=== PATIENT | male | born 1955 | race Two or more races ===

== ENCOUNTER 2021-10-06 17:37 | Inpatient (IN) | payer MEDICARE, MEDICAID ==
[~2021-10-06] VITALS: Ht 170.2 cm; Wt 105.7 kg
[2021-10-06] MEDS ORDERED: LEVETIRACETAM 500MG PREMIX 100 ML IV ONE (19:00)
[2021-10-06 19:09] LABS: BASOPHILS % 0.3 % (0.0-2.0); HEMATOCRIT. 35.2 % (42.0-52.0); HEMOGLOBIN. 11.8 g/dL (14.0-18.0); LYMPHOCYTES % 8.2 % (20.0-50.0); MEAN CORPUSCULAR HEMOGLOBIN 29.9 pg (28.0-32.0); MEAN CORPUSCULAR VOLUME 89.2 fL (80.0-94.0); MEAN PLATELET VOLUME 9.5 fl (7.4-10.4); MONOCYTES % 12.3 % (2.0-8.0); NEUTROPHILS % 79.2 % (40.0-76.0); PLATELET 111 x1000/uL (130-400); RED BLOOD CELL COUNT 3.95 mill/uL (4.7-6.1); RED CELL DISTRIBUTION WIDTH 22.3 % (11.6-14.6)
[2021-10-06 19:10] LABS: CHLORIDE 92 mEq/L (98-107)
[2021-10-06 19:15] LABS: ETHANOL BLOOD < 10 mg/dL
[2021-10-06] MEDS ORDERED: LACTULOSE 20G/30ML UDC PO ONE (19:45)
[2021-10-06 21:14] LABS: PLATELET ESTIMATE DECREASED
[2021-10-06 23:25] VITALS: BP 155/91
[2021-10-07] VITALS: BP 145/73
[2021-10-07] MEDS ORDERED: METF-414 PO (00:07)
[2021-10-07] MEDS ORDERED: CALC-3 MT (00:08)
[2021-10-07] MEDS ORDERED: ATOR40TA70 MT (00:10)
[2021-10-07] MEDS ORDERED: TAMS-11 PO (00:11)
[2021-10-07] MEDS ORDERED: MAGNESIUM/ALUMINUM HYDROXIDE/SIMETHICONE 30ML UDC PO PRN (01:00)
[2021-10-07] MEDS ORDERED: GUAIFENESIN 200MG/10ML SUGAR FREE UDC PO PRN (01:00)
[2021-10-07] MEDS ORDERED: HYDROCODONE/ACETAMINOPHEN 5/325MG TABLET PO PRN (01:00)
[2021-10-07] MEDS ORDERED: DOCUSATE SODIUM 100MG CAPSULE PO PRN (01:00)
[2021-10-07] MEDS ORDERED: CLONIDINE 0.1MG TABLET PO PRN (01:00)
[2021-10-07] MEDS ORDERED: IPRATROPIUM/ALBUTEROL 0.5-3(2.5)MG/3ML NEB NEB PRN (01:00)
[2021-10-07] MEDS ORDERED: ACETAMINOPHEN 325MG TABLET PO PRN (01:00)
[2021-10-07] MEDS ORDERED: ONDANSETRON HCL 4MG/2ML INJ IV PRN (01:00)
[2021-10-07] MEDS: LORAZEPAM 2MG/ML CPJ IV PRN ×2 (02:15→23:43)
[2021-10-07] MEDS ORDERED: MVI, ADULT NO.1 10 ML, FOLIC ACID 1 MG, THIAMINE HCL 100 MG in SODIUM CHLORIDE 0.9% 1,0... IV SCH (04:00)
[2021-10-07] MEDS: LACTULOSE 20G/30ML UDC PO SCH ×3 (05:35→22:06)
[2021-10-07] MEDS: CHLORDIAZEPOXIDE 25MG CAPSULE PO SCH ×3 (05:35→22:01)
[2021-10-07 06:15] LABS: BASOPHILS % 0.3 % (0.0-2.0); EOSINOPHILS % 0.2 % (0.0-5.0); HEMATOCRIT. 33.9 % (42.0-52.0); HEMOGLOBIN. 11.4 g/dL (14.0-18.0); LYMPHOCYTES % 14.7 % (20.0-50.0); MEAN CORPUSCULAR HEMOGLOBIN 29.8 pg (28.0-32.0); MEAN CORPUSCULAR VOLUME 88.8 fL (80.0-94.0); MEAN PLATELET VOLUME 8.7 fl (7.4-10.4); MONOCYTES % 8.5 % (2.0-8.0); NEUTROPHILS % 76.3 % (40.0-76.0); PLATELET 87 x1000/uL (130-400); RED BLOOD CELL COUNT 3.81 mill/uL (4.7-6.1)
[2021-10-07 06:26] LABS: CHLORIDE 96 mEq/L (98-107)
[2021-10-07 06:34] LABS: LDL CHOLESTEROL 99 mg/dL (5-100)
[2021-10-07 06:35] LABS: CREATINE KINASE 733 IU/L (39-308); CREATINE KINASE MB FRACTION 4.3 ng/mL (0.5-3.6); HDL CHOLESTEROL 9 mg/dL (40-59)
[2021-10-07 07:25] LABS: HEPATITIS B SURFACE ANTIGEN NEGATIVE
[2021-10-07 12:00] VITALS: BP 144/83
[2021-10-07 12:29] LABS: *AMPHETAMINES SCREEN URINE NEGATIVE (NEGATIVE); *BARBITURATES SCREEN URINE NEGATIVE (NEGATIVE); *BENZODIAZEPINES SCREEN URINE NEGATIVE (NEGATIVE); *COCAINE SCREEN URINE NEGATIVE (NEGATIVE)
[2021-10-07 12:30] LABS: CANNABINOID URINE SCREEN NEGATIVE (NEGATIVE); METHADONE URINE SCREEN NEGATIVE (NEGATIVE); OPIATES URINE SCREEN NEGATIVE (NEGATIVE); PHENCYCLIDINE URINE SCREEN NEGATIVE (NEGATIVE)
[2021-10-07 16:00] VITALS: BP 131/88
[2021-10-07] MEDS ORDERED: LACTULOSE 20G/30ML UDC PO PRN (16:30)
[2021-10-07 17:15] LABS: CREATINE KINASE 510 IU/L (39-308)
[2021-10-07 17:16] LABS: CREATINE KINASE MB FRACTION 2.6 ng/mL (0.5-3.6)
[2021-10-07 20:00] VITALS: BP 151/92
[2021-10-07] MEDS: LACTATED RINGERS 1,000 ML IV SCH (22:00)
[2021-10-08] VITALS: BP 145/89
[2021-10-08] MEDS: LACTATED RINGERS 1,000 ML IV SCH ×2 (00:33→05:32)
[2021-10-08 04:00] VITALS: BP 141/86
[2021-10-08] MEDS: CHLORDIAZEPOXIDE 25MG CAPSULE PO SCH ×3 (05:31→21:09)
[2021-10-08] MEDS: LACTULOSE 20G/30ML UDC PO SCH ×3 (05:31→21:09)
[2021-10-08] MEDS: LORAZEPAM 2MG/ML CPJ IV PRN ×2 (05:43→20:01)
[2021-10-08 07:57] LABS: INR 2.2; PROTHROMBIN TIME 21.9 sec (9.6-11.0)
[2021-10-08 08:00] VITALS: BP 133/80
[2021-10-08] MEDS: FOLIC ACID 1MG TABLET PO SCH (09:07)
[2021-10-08] MEDS: THIAMINE HCL 100MG TABLET PO SCH (09:08)
[2021-10-08] MEDS: MULTIVITAMINS,THER W-MINERALS TABLET PO SCH (09:08)
[2021-10-08] MEDS: PANTOPRAZOLE SODIUM 40 MG/VIAL IV SCH (09:15)
[2021-10-08 12:00] VITALS: BP 111/74
[2021-10-08] MEDS ORDERED: NALOXONE HCL 0.4MG/ML VIAL IV PRN (13:15)
[2021-10-08 16:00] VITALS: BP 132/79
[2021-10-08 20:00] VITALS: BP 154/90
[2021-10-09] VITALS: BP 167/84
[2021-10-09] MEDS: LACTATED RINGERS 1,000 ML IV SCH ×2 (00:55→12:46)
[2021-10-09 04:00] VITALS: BP 145/79
[2021-10-09] MEDS: LACTULOSE 20G/30ML UDC PO SCH ×3 (05:46→21:35)
[2021-10-09] MEDS: CHLORDIAZEPOXIDE 25MG CAPSULE PO SCH ×3 (05:46→21:35)
[2021-10-09 07:44] LABS: BASOPHILS % 0.6 % (0.0-2.0); EOSINOPHILS % 0.8 % (0.0-5.0); HEMATOCRIT. 31.9 % (42.0-52.0); HEMOGLOBIN. 10.8 g/dL (14.0-18.0); LYMPHOCYTES % 17.2 % (20.0-50.0); MEAN CORPUSCULAR HEMOGLOBIN 30.6 pg (28.0-32.0); MEAN CORPUSCULAR VOLUME 90.3 fL (80.0-94.0); MONOCYTES % 14.6 % (2.0-8.0); NEUTROPHILS % 66.8 % (40.0-76.0); PLATELET 93 x1000/uL (130-400); RED BLOOD CELL COUNT 3.53 mill/uL (4.7-6.1); RED CELL DISTRIBUTION WIDTH 22.5 % (11.6-14.6)
[2021-10-09 07:57] LABS: CHLORIDE 102 mEq/L (98-107)
[2021-10-09 08:00] VITALS: BP 150/91
[2021-10-09] MEDS: MULTIVITAMINS,THER W-MINERALS TABLET PO SCH (09:44)
[2021-10-09] MEDS: THIAMINE HCL 100MG TABLET PO SCH (09:44)
[2021-10-09] MEDS: FOLIC ACID 1MG TABLET PO SCH (09:44)
[2021-10-09] MEDS: PANTOPRAZOLE SODIUM 40 MG/VIAL IV SCH (09:55)
[2021-10-09] MEDS ORDERED: POTASSIUM CHLORIDE 20MEQ/PACKET PO SCH (10:00)
[2021-10-09] MEDS ORDERED: KCL 20MEQ/100ML PREMIX 100 ML IV SCH (11:30)
[2021-10-09 12:00] VITALS: BP 129/80
[2021-10-09] MEDS: SODIUM CHLORIDE 0.9% 1,000 ML IV SCH (15:07)
[2021-10-09 16:00] VITALS: BP 121/72
[2021-10-09] MEDS: KCL 20MEQ/100ML PREMIX 100 ML IV SCH ×2 (17:08→17:35)
[2021-10-09] MEDS: RIFAXIMIN 550 MG TABLET PO SCH (17:08)
[2021-10-09 20:00] VITALS: BP 126/76
[2021-10-10] VITALS: BP 133/82
[2021-10-10] MEDS: RIFAXIMIN 550 MG TABLET PO SCH ×3 (00:36→22:08)
[2021-10-10 04:00] VITALS: BP 133/80
[2021-10-10] MEDS: SODIUM CHLORIDE 0.9% 1,000 ML IV SCH ×2 (04:45→16:19)
[2021-10-10] MEDS: CHLORDIAZEPOXIDE 25MG CAPSULE PO SCH ×3 (05:14→22:08)
[2021-10-10] MEDS: LACTULOSE 20G/30ML UDC PO SCH ×3 (05:15→22:09)
[2021-10-10 06:26] LABS: HEMATOCRIT. 33.1 % (42.0-52.0); HEMOGLOBIN. 11.2 g/dL (14.0-18.0); MEAN CORPUSCULAR HEMOGLOBIN 30.9 pg (28.0-32.0); MEAN CORPUSCULAR VOLUME 91.4 fL (80.0-94.0); MEAN PLATELET VOLUME 7.9 fl (7.4-10.4); PLATELET 112 x1000/uL (130-400); RED BLOOD CELL COUNT 3.62 mill/uL (4.7-6.1); RED CELL DISTRIBUTION WIDTH 23.1 % (11.6-14.6)
[2021-10-10 06:35] LABS: CHLORIDE 106 mEq/L (98-107)
[2021-10-10 06:54] LABS: PHOSPHORUS 1.6 mg/dL (2.5-4.9)
[2021-10-10 08:00] VITALS: BP 140/86
[2021-10-10] MEDS: FOLIC ACID 1MG TABLET PO SCH (09:27)
[2021-10-10] MEDS: THIAMINE HCL 100MG TABLET PO SCH (09:27)
[2021-10-10] MEDS: PANTOPRAZOLE SODIUM 40 MG/VIAL IV SCH (09:27)
[2021-10-10] MEDS: MULTIVITAMINS,THER W-MINERALS TABLET PO SCH (09:27)
[2021-10-10 12:00] VITALS: BP 125/63
[2021-10-10 16:00] VITALS: BP 144/86
[2021-10-10 17:49] LABS: PLATELET ESTIMATE DECREASED
[2021-10-10] MEDS ORDERED: POTASSIUM PHOS,M-BASIC-D-BASIC 10 MMOL in DEXT 5% WATER 246.6667 ML IV NR (18:00)
[2021-10-10] MEDS ORDERED: MAGNESIUM 2 G PREMIX 50 ML IV NR (18:00)
[2021-10-10 20:00] VITALS: BP 139/87
[2021-10-11] VITALS: BP 152/84
[2021-10-11] MEDS ORDERED: SODIUM PHOS,M-BASIC-D-BASIC 10 MM in DEXT 5% WATER 246.6667 ML IV NR (01:00)
[2021-10-11 04:00] VITALS: BP 149/85
[2021-10-11] MEDS: SODIUM CHLORIDE 0.9% 1,000 ML IV SCH ×2 (05:03→18:18)
[2021-10-11] MEDS: CHLORDIAZEPOXIDE 25MG CAPSULE PO SCH ×2 (05:26→13:00)
[2021-10-11] MEDS: LACTULOSE 20G/30ML UDC PO SCH ×3 (05:26→21:07)
[2021-10-11] MEDS: BLOOD SUGAR DIAGNOSTIC STRIP TEST SCH ×4 (05:47→21:07)
[2021-10-11] MEDS: INSULIN LISPRO 100 UNITS/ML SUBCUT SCH ×4 (06:25→21:00)
[2021-10-11 06:45] LABS: HEMATOCRIT. 33.1 % (42.0-52.0); HEMOGLOBIN. 11.2 g/dL (14.0-18.0); MEAN CORPUSCULAR HEMOGLOBIN 31.1 pg (28.0-32.0); MEAN CORPUSCULAR VOLUME 91.5 fL (80.0-94.0); MEAN PLATELET VOLUME 7.9 fl (7.4-10.4); PLATELET 118 x1000/uL (130-400); RED BLOOD CELL COUNT 3.62 mill/uL (4.7-6.1); RED CELL DISTRIBUTION WIDTH 23.1 % (11.6-14.6)
[2021-10-11 06:50] LABS: CHLORIDE 106 mEq/L (98-107)
[2021-10-11 08:00] VITALS: BP 133/82
[2021-10-11] MEDS: RIFAXIMIN 550 MG TABLET PO SCH ×2 (09:08→21:07)
[2021-10-11] MEDS: THIAMINE HCL 100MG TABLET PO SCH (09:08)
[2021-10-11] MEDS: PANTOPRAZOLE SODIUM 40 MG/VIAL IV SCH (09:08)
[2021-10-11] MEDS: FOLIC ACID 1MG TABLET PO SCH (09:08)
[2021-10-11] MEDS: MULTIVITAMINS,THER W-MINERALS TABLET PO SCH (09:08)
[2021-10-11 10:25] LABS: PLATELET ESTIMATE DECREASED
[2021-10-11 12:00] VITALS: BP 146/85
[2021-10-11] MEDS: LORAZEPAM 2MG/ML CPJ IV PRN (15:29)
[2021-10-11 16:00] VITALS: BP 126/78
[2021-10-11] MEDS ORDERED: CHLORDIAZEPOXIDE 25MG CAPSULE PO SCH (17:00)
[2021-10-11] MEDS ORDERED: LACTULOSE 300 ML in WATER FOR IRRIGATION,STERILE 700 ML IR NR (18:00)
[2021-10-11 20:00] VITALS: BP 140/76
[2021-10-12] VITALS: BP 145/87
[2021-10-12 04:00] VITALS: BP 134/66
[2021-10-12] MEDS: SODIUM CHLORIDE 0.9% 1,000 ML IV SCH ×2 (05:07→18:11)
[2021-10-12] MEDS: LACTULOSE 20G/30ML UDC PO SCH ×3 (05:07→22:20)
[2021-10-12] MEDS: BLOOD SUGAR DIAGNOSTIC STRIP TEST SCH ×4 (05:49→21:42)
[2021-10-12] MEDS: INSULIN LISPRO 100 UNITS/ML SUBCUT SCH ×4 (05:49→21:00)
[2021-10-12 06:23] LABS: CHLORIDE 109 mEq/L (98-107)
[2021-10-12 07:04] LABS: HEMATOCRIT. 35.5 % (42.0-52.0); MEAN CORPUSCULAR HEMOGLOBIN 31.2 pg (28.0-32.0); MEAN CORPUSCULAR VOLUME 92.7 fL (80.0-94.0); MEAN PLATELET VOLUME 7.9 fl (7.4-10.4); PLATELET 139 x1000/uL (130-400); RED BLOOD CELL COUNT 3.83 mill/uL (4.7-6.1); RED CELL DISTRIBUTION WIDTH 24.1 % (11.6-14.6)
[2021-10-12 08:00] VITALS: BP 130/73
[2021-10-12] MEDS: THIAMINE HCL 100MG TABLET PO SCH (09:39)
[2021-10-12] MEDS: FOLIC ACID 1MG TABLET PO SCH (09:39)
[2021-10-12] MEDS: MULTIVITAMINS,THER W-MINERALS TABLET PO SCH (09:39)
[2021-10-12] MEDS: RIFAXIMIN 550 MG TABLET PO SCH ×2 (09:39→21:42)
[2021-10-12] MEDS: CHLORDIAZEPOXIDE 25MG CAPSULE PO SCH ×2 (09:39→17:53)
[2021-10-12] MEDS: PANTOPRAZOLE SODIUM 40 MG/VIAL IV SCH (09:40)
[2021-10-12 12:00] VITALS: BP 129/80
[2021-10-12 13:34] LABS: PLATELET ESTIMATE NORMAL
[2021-10-12 16:00] VITALS: BP 132/78
[2021-10-12 20:00] VITALS: BP 137/79
[2021-10-12] MEDS: CEFEPIME 2,000 MG in DEXT 5% WATER 100 ML IV SCH (21:23)
[2021-10-13] VITALS: BP 149/76
[2021-10-13 04:00] VITALS: BP 132/77
[2021-10-13 06:05] LABS: CLARITY URINE CLOUDY (CLEAR); COLOR URINE DARK YELLOW (YELLOW); KETONES URINE NEGATIVE (NEGATIVE); LEUKOCYTE ESTERASE URINE 1+ (NEGATIVE); NITRITE URINE POSITIVE (NEGATIVE); OCCULT BLOOD URINE NEGATIVE (NEGATIVE); PROTEIN URINE 1+ (NEGATIVE); SPECIFIC GRAVITY URINE 1.025 (1.005-1.030); UROBILINOGEN URINE 0.2 E.U./dL (0.2-1.0)
[2021-10-13] MEDS: LACTULOSE 20G/30ML UDC PO SCH ×3 (06:08→22:08)
[2021-10-13] MEDS: BLOOD SUGAR DIAGNOSTIC STRIP TEST SCH ×4 (06:09→21:00)
[2021-10-13] MEDS: INSULIN LISPRO 100 UNITS/ML SUBCUT SCH ×4 (06:09→21:00)
[2021-10-13] MEDS: SODIUM CHLORIDE 0.9% 1,000 ML IV SCH ×2 (06:43→19:55)
[2021-10-13 08:00] VITALS: BP 144/91
[2021-10-13] MEDS: MULTIVITAMINS,THER W-MINERALS TABLET PO SCH (09:52)
[2021-10-13] MEDS: FOLIC ACID 1MG TABLET PO SCH (09:52)
[2021-10-13] MEDS: RIFAXIMIN 550 MG TABLET PO SCH ×2 (09:52→22:07)
[2021-10-13] MEDS: THIAMINE HCL 100MG TABLET PO SCH (09:52)
[2021-10-13] MEDS: CHLORDIAZEPOXIDE 25MG CAPSULE PO SCH ×2 (09:52→16:50)
[2021-10-13] MEDS: PANTOPRAZOLE SODIUM 40 MG/VIAL IV SCH (09:53)
[2021-10-13] MEDS: CEFEPIME 2,000 MG in DEXT 5% WATER 100 ML IV SCH ×2 (09:54→19:55)
[2021-10-13 12:00] VITALS: BP 149/86
[2021-10-13 12:27] LABS: BASOPHILS % 0.7 % (0.0-2.0); EOSINOPHILS % 0.5 % (0.0-5.0); HEMATOCRIT. 37.4 % (42.0-52.0); HEMOGLOBIN. 12.3 g/dL (14.0-18.0); LYMPHOCYTES % 10.2 % (20.0-50.0); MEAN CORPUSCULAR HEMOGLOBIN 30.7 pg (28.0-32.0); MEAN CORPUSCULAR VOLUME 93.3 fL (80.0-94.0); MEAN PLATELET VOLUME 7.8 fl (7.4-10.4); MONOCYTES % 10.7 % (2.0-8.0); NEUTROPHILS % 77.9 % (40.0-76.0); PLATELET 155 x1000/uL (130-400); RED BLOOD CELL COUNT 4.01 mill/uL (4.7-6.1); RED CELL DISTRIBUTION WIDTH 24.8 % (11.6-14.6)
[2021-10-13 12:36] LABS: CHLORIDE 113 mEq/L (98-107)
[2021-10-13 16:00] VITALS: BP 136/72
[2021-10-13] MEDS: SPIRONOLACTONE 50MG TABLET PO SCH ×2 (17:01→17:03)
[2021-10-13] MEDS: FUROSEMIDE 40MG TABLET PO SCH (17:03)
[2021-10-13] MEDS ORDERED: PHYTONADIONE 10MG/ML AMP SUBCUT NR (18:00)
[2021-10-13 20:00] VITALS: BP 148/79
[2021-10-13 20:37] LABS: INR 2.2; PROTHROMBIN TIME 22.5 sec (9.6-11.0)
[2021-10-14] VITALS: BP 139/76
[2021-10-14 04:00] VITALS: BP 121/60
[2021-10-14] MEDS: BLOOD SUGAR DIAGNOSTIC STRIP TEST SCH ×4 (06:00→21:05)
[2021-10-14] MEDS: FUROSEMIDE 40MG TABLET PO SCH ×2 (06:00→17:06)
[2021-10-14] MEDS: INSULIN LISPRO 100 UNITS/ML SUBCUT SCH ×4 (06:00→21:00)
[2021-10-14] MEDS: LACTULOSE 20G/30ML UDC PO SCH ×3 (06:00→21:10)
[2021-10-14 06:51] LABS: BASOPHILS % 1.8 % (0.0-2.0); EOSINOPHILS % 0.4 % (0.0-5.0); HEMATOCRIT. 34.9 % (42.0-52.0); HEMOGLOBIN. 11.6 g/dL (14.0-18.0); LYMPHOCYTES % 10.6 % (20.0-50.0); MEAN CORPUSCULAR HEMOGLOBIN 31.4 pg (28.0-32.0); MEAN CORPUSCULAR VOLUME 94.2 fL (80.0-94.0); MEAN PLATELET VOLUME 8.1 fl (7.4-10.4); MONOCYTES % 11.8 % (2.0-8.0); NEUTROPHILS % 75.4 % (40.0-76.0); PLATELET 146 x1000/uL (130-400); RED CELL DISTRIBUTION WIDTH 24.3 % (11.6-14.6)
[2021-10-14] MEDS: SODIUM CHLORIDE 0.9% 1,000 ML IV SCH ×2 (06:53→21:06)
[2021-10-14] MEDS: CEFEPIME 2,000 MG in DEXT 5% WATER 100 ML IV SCH ×2 (07:00→19:34)
[2021-10-14 07:16] LABS: CHLORIDE 116 mEq/L (98-107)
[2021-10-14 08:00] VITALS: BP 111/71
[2021-10-14] MEDS: MULTIVITAMINS,THER W-MINERALS TABLET PO SCH (08:26)
[2021-10-14] MEDS: FOLIC ACID 1MG TABLET PO SCH (08:26)
[2021-10-14] MEDS: RIFAXIMIN 550 MG TABLET PO SCH (08:26)
[2021-10-14] MEDS: THIAMINE HCL 100MG TABLET PO SCH (08:26)
[2021-10-14] MEDS: PANTOPRAZOLE SODIUM 40 MG/VIAL IV SCH (08:26)
[2021-10-14 12:00] VITALS: BP 142/85
[2021-10-14 16:00] VITALS: BP 135/72
[2021-10-14] MEDS: SPIRONOLACTONE 50MG TABLET PO SCH (17:07)
[2021-10-14 20:00] VITALS: BP 129/66
[2021-10-15] VITALS: BP 119/63
[2021-10-15 04:00] VITALS: BP 130/76
[2021-10-15] MEDS: INSULIN LISPRO 100 UNITS/ML SUBCUT SCH ×4 (06:16→21:30)
[2021-10-15] MEDS: LACTULOSE 20G/30ML UDC PO SCH ×3 (06:16→21:29)
[2021-10-15] MEDS: BLOOD SUGAR DIAGNOSTIC STRIP TEST SCH ×4 (06:16→21:14)
[2021-10-15] MEDS: FUROSEMIDE 40MG TABLET PO SCH ×2 (06:16→17:55)
[2021-10-15 07:24] LABS: CHLORIDE 116 mEq/L (98-107)
[2021-10-15 08:00] VITALS: BP 127/73
[2021-10-15] MEDS: SODIUM CHLORIDE 0.9% 1,000 ML IV SCH ×2 (09:11→21:31)
[2021-10-15] MEDS: FOLIC ACID 1MG TABLET PO SCH (09:11)
[2021-10-15] MEDS: CEFEPIME 2,000 MG in DEXT 5% WATER 100 ML IV SCH ×2 (09:11→19:43)
[2021-10-15] MEDS: THIAMINE HCL 100MG TABLET PO SCH (09:11)
[2021-10-15] MEDS: MULTIVITAMINS,THER W-MINERALS TABLET PO SCH (09:11)
[2021-10-15] MEDS: PANTOPRAZOLE SODIUM 40 MG/VIAL IV SCH (09:11)
[2021-10-15] MEDS: SPIRONOLACTONE 50MG TABLET PO SCH ×2 (09:32→17:55)
[2021-10-15 12:00] VITALS: BP 128/73
[2021-10-15 16:00] VITALS: BP 148/84
[2021-10-15] MEDS ORDERED: POTASSIUM CHLORIDE INJ 40 MEQ in DEXT 5% WATER 250 ML IV ONE (19:30)
[2021-10-15 20:00] VITALS: BP 145/81
[2021-10-15] MEDS: KCL 20MEQ/100ML PREMIX 100 ML IV SCH ×2 (21:31→23:42)
[2021-10-16] VITALS: BP 148/80
[2021-10-16] MEDS: INSULIN LISPRO 100 UNITS/ML SUBCUT SCH ×5 (03:14→21:00)
[2021-10-16 04:00] VITALS: BP 139/72
[2021-10-16 05:28] LABS: CHLORIDE 116 mEq/L (98-107)
[2021-10-16 06:14] LABS: BASOPHILS % 0.4 % (0.0-2.0); EOSINOPHILS % 0.4 % (0.0-5.0); HEMATOCRIT. 36.9 % (42.0-52.0); HEMOGLOBIN. 12.3 g/dL (14.0-18.0); LYMPHOCYTES % 7.8 % (20.0-50.0); MEAN CORPUSCULAR HEMOGLOBIN 31.6 pg (28.0-32.0); MEAN CORPUSCULAR VOLUME 94.5 fL (80.0-94.0); MEAN PLATELET VOLUME 8.1 fl (7.4-10.4); MONOCYTES % 9.6 % (2.0-8.0); NEUTROPHILS % 81.8 % (40.0-76.0); PLATELET 139 x1000/uL (130-400); RED CELL DISTRIBUTION WIDTH 23.4 % (11.6-14.6)
[2021-10-16] MEDS: FUROSEMIDE 40MG TABLET PO SCH ×2 (06:35→18:39)
[2021-10-16] MEDS: BLOOD SUGAR DIAGNOSTIC STRIP TEST SCH ×4 (06:35→21:03)
[2021-10-16] MEDS: LACTULOSE 20G/30ML UDC PO SCH ×3 (06:35→22:48)
[2021-10-16 08:00] VITALS: BP 146/68
[2021-10-16] MEDS: CEFEPIME 2,000 MG in DEXT 5% WATER 100 ML IV SCH ×2 (10:02→21:04)
[2021-10-16] MEDS: THIAMINE HCL 100MG TABLET PO SCH (10:03)
[2021-10-16] MEDS: MULTIVITAMINS,THER W-MINERALS TABLET PO SCH (10:03)
[2021-10-16] MEDS: SPIRONOLACTONE 50MG TABLET PO SCH ×2 (10:03→18:39)
[2021-10-16] MEDS: PANTOPRAZOLE SODIUM 40 MG/VIAL IV SCH (10:03)
[2021-10-16] MEDS: SODIUM CHLORIDE 0.9% 1,000 ML IV SCH ×2 (10:03→22:48)
[2021-10-16] MEDS: FOLIC ACID 1MG TABLET PO SCH (10:03)
[2021-10-16 12:00] VITALS: BP 138/74
[2021-10-16 16:00] VITALS: BP 135/74
[2021-10-16 20:00] VITALS: BP 124/63
[2021-10-16] MEDS: AMPICILLIN 1,000 MG in SODIUM CHLORIDE 0.9% 50 ML IV SCH (22:48)
[2021-10-17] VITALS: BP 127/66
[2021-10-17 04:00] VITALS: BP 113/62
[2021-10-17] MEDS: AMPICILLIN 1,000 MG in SODIUM CHLORIDE 0.9% 50 ML IV SCH ×4 (04:12→22:01)
[2021-10-17] MEDS: LACTULOSE 20G/30ML UDC PO SCH ×3 (06:15→22:01)
[2021-10-17] MEDS: FUROSEMIDE 40MG TABLET PO SCH ×2 (06:15→17:34)
[2021-10-17] MEDS: INSULIN LISPRO 100 UNITS/ML SUBCUT SCH ×4 (06:16→21:00)
[2021-10-17] MEDS: BLOOD SUGAR DIAGNOSTIC STRIP TEST SCH ×4 (06:16→21:59)
[2021-10-17 07:28] LABS: BASOPHILS % 0.7 % (0.0-2.0); EOSINOPHILS % 0.8 % (0.0-5.0); HEMATOCRIT. 36.1 % (42.0-52.0); MEAN CORPUSCULAR HEMOGLOBIN 31.1 pg (28.0-32.0); MEAN CORPUSCULAR VOLUME 93.6 fL (80.0-94.0); MEAN PLATELET VOLUME 8.4 fl (7.4-10.4); MONOCYTES % 8.9 % (2.0-8.0); NEUTROPHILS % 81.6 % (40.0-76.0); PLATELET 123 x1000/uL (130-400); RED BLOOD CELL COUNT 3.86 mill/uL (4.7-6.1); RED CELL DISTRIBUTION WIDTH 22.2 % (11.6-14.6)
[2021-10-17 07:37] LABS: CHLORIDE 112 mEq/L (98-107); INR 2.2; PROTHROMBIN TIME 22.4 sec (9.6-11.0)
[2021-10-17 08:00] VITALS: BP 140/76
[2021-10-17] MEDS: SPIRONOLACTONE 50MG TABLET PO SCH ×2 (10:21→17:34)
[2021-10-17] MEDS: MULTIVITAMINS,THER W-MINERALS TABLET PO SCH (10:21)
[2021-10-17] MEDS: FOLIC ACID 1MG TABLET PO SCH (10:21)
[2021-10-17] MEDS: PANTOPRAZOLE SODIUM 40 MG/VIAL IV SCH (10:21)
[2021-10-17] MEDS: THIAMINE HCL 100MG TABLET PO SCH (10:21)
[2021-10-17] MEDS: SODIUM CHLORIDE 0.9% 1,000 ML IV SCH ×2 (10:22→23:00)
[2021-10-17 12:00] VITALS: BP 133/82
[2021-10-17] MEDS ORDERED: POTASSIUM CHLORIDE 20MEQ TABLET SR PO NR (12:15)
[2021-10-17 16:00] VITALS: BP 132/71
[2021-10-17 20:00] VITALS: BP 122/64
[2021-10-18] VITALS: BP 112/49
[2021-10-18] MEDS: AMPICILLIN 1,000 MG in SODIUM CHLORIDE 0.9% 50 ML IV SCH ×4 (03:07→22:00)
[2021-10-18 04:00] VITALS: BP 131/59
[2021-10-18] MEDS: FUROSEMIDE 40MG TABLET PO SCH (06:06)
[2021-10-18] MEDS: LACTULOSE 20G/30ML UDC PO SCH ×3 (06:06→22:49)
[2021-10-18] MEDS: BLOOD SUGAR DIAGNOSTIC STRIP TEST SCH ×4 (06:16→21:00)
[2021-10-18] MEDS: INSULIN LISPRO 100 UNITS/ML SUBCUT SCH ×4 (06:16→21:00)
[2021-10-18 07:12] LABS: HEMATOCRIT. 33.4 % (42.0-52.0); HEMOGLOBIN. 11.3 g/dL (14.0-18.0); MEAN CORPUSCULAR HEMOGLOBIN 31.5 pg (28.0-32.0); MEAN CORPUSCULAR VOLUME 93.1 fL (80.0-94.0); MEAN PLATELET VOLUME 8.7 fl (7.4-10.4); PLATELET 92 x1000/uL (130-400); RED BLOOD CELL COUNT 3.59 mill/uL (4.7-6.1); RED CELL DISTRIBUTION WIDTH 21.9 % (11.6-14.6)
[2021-10-18 07:20] LABS: CHLORIDE 113 mEq/L (98-107)
[2021-10-18 08:00] VITALS: BP 125/73
[2021-10-18] MEDS: SPIRONOLACTONE 50MG TABLET PO SCH (09:55)
[2021-10-18] MEDS: MULTIVITAMINS,THER W-MINERALS TABLET PO SCH (09:55)
[2021-10-18] MEDS: FOLIC ACID 1MG TABLET PO SCH (09:55)
[2021-10-18] MEDS: THIAMINE HCL 100MG TABLET PO SCH (09:55)
[2021-10-18] MEDS: PANTOPRAZOLE SODIUM 40 MG/VIAL IV SCH (09:55)
[2021-10-18] MEDS ORDERED: POTASSIUM CHLORIDE 20MEQ TABLET SR PO NR (11:15)
[2021-10-18 12:00] VITALS: BP 129/79
[2021-10-18] MEDS: SODIUM CHLORIDE 0.9% 1,000 ML IV SCH (14:38)
[2021-10-18 16:00] VITALS: BP 131/67
[2021-10-18 19:03] LABS: PLATELET ESTIMATE DECREASED
[2021-10-18 20:00] VITALS: BP 131/66
[2021-10-19 00:17] VITALS: BP 150/74
[2021-10-19] MEDS: LACTULOSE 20G/30ML UDC PO SCH ×3 (06:00→22:40)
[2021-10-19] MEDS: BLOOD SUGAR DIAGNOSTIC STRIP TEST SCH ×4 (07:09→21:00)
[2021-10-19] MEDS: INSULIN LISPRO 100 UNITS/ML SUBCUT SCH ×4 (07:10→21:00)
[2021-10-19 07:34] LABS: MEAN CORPUSCULAR HEMOGLOBIN 30.9 pg (28.0-32.0); MEAN CORPUSCULAR VOLUME 92.7 fL (80.0-94.0); MEAN PLATELET VOLUME 8.8 fl (7.4-10.4); PLATELET 78 x1000/uL (130-400); RED BLOOD CELL COUNT 3.56 mill/uL (4.7-6.1); RED CELL DISTRIBUTION WIDTH 22.2 % (11.6-14.6)
[2021-10-19 07:56] LABS: CHLORIDE 117 mEq/L (98-107)
[2021-10-19 08:00] VITALS: BP 143/87
[2021-10-19] MEDS: FOLIC ACID 1MG TABLET PO SCH (08:32)
[2021-10-19] MEDS: THIAMINE HCL 100MG TABLET PO SCH (08:32)
[2021-10-19] MEDS: MULTIVITAMINS,THER W-MINERALS TABLET PO SCH (08:32)
[2021-10-19] MEDS: PANTOPRAZOLE SODIUM 40 MG/VIAL IV SCH (09:17)
[2021-10-19] MEDS: AMPICILLIN 1,000 MG in SODIUM CHLORIDE 0.9% 50 ML IV SCH ×3 (10:36→22:40)
[2021-10-19 12:00] VITALS: BP 123/75
[2021-10-19 12:01] LABS: PLATELET ESTIMATE DECREASED
[2021-10-19] MEDS: SODIUM CHLORIDE 0.9% 1,000 ML IV SCH ×2 (12:13)
[2021-10-19] MEDS: PHYTONADIONE 10MG/ML AMP SUBCUT SCH (14:39)
[2021-10-19 16:00] VITALS: BP 133/71
[2021-10-19] MEDS: METOCLOPRAMIDE HCL 10MG/2ML VIAL IV SCH ×2 (17:23→22:40)
[2021-10-19 20:00] VITALS: BP 128/63
[2021-10-19 20:36] VITALS: BP 128/63
[2021-10-20 00:15] VITALS: BP 117/62
[2021-10-20] MEDS: SODIUM CHLORIDE 0.9% 1,000 ML IV SCH ×2 (00:59→14:06)
[2021-10-20 04:00] VITALS: BP 139/76
[2021-10-20] MEDS: AMPICILLIN 1,000 MG in SODIUM CHLORIDE 0.9% 50 ML IV SCH ×3 (04:20→18:39)
[2021-10-20] MEDS: METOCLOPRAMIDE HCL 10MG/2ML VIAL IV SCH ×3 (05:18→18:40)
[2021-10-20] MEDS: LACTULOSE 20G/30ML UDC PO SCH ×3 (05:18→21:00)
[2021-10-20] MEDS: BLOOD SUGAR DIAGNOSTIC STRIP TEST SCH ×4 (06:13→20:23)
[2021-10-20] MEDS: INSULIN LISPRO 100 UNITS/ML SUBCUT SCH ×4 (06:13→20:24)
[2021-10-20 07:29] LABS: CHLORIDE 117 mEq/L (98-107)
[2021-10-20 07:51] LABS: HEMATOCRIT. 34.6 % (42.0-52.0); HEMOGLOBIN. 11.4 g/dL (14.0-18.0); MEAN CORPUSCULAR HEMOGLOBIN 30.9 pg (28.0-32.0); MEAN CORPUSCULAR VOLUME 93.4 fL (80.0-94.0); MEAN PLATELET VOLUME 8.8 fl (7.4-10.4); PLATELET 85 x1000/uL (130-400); RED CELL DISTRIBUTION WIDTH 21.9 % (11.6-14.6)
[2021-10-20 08:00] VITALS: BP 147/87
[2021-10-20] MEDS: MULTIVITAMINS,THER W-MINERALS TABLET PO SCH (09:40)
[2021-10-20] MEDS: THIAMINE HCL 100MG TABLET PO SCH (09:40)
[2021-10-20] MEDS: PANTOPRAZOLE SODIUM 40 MG/VIAL IV SCH (09:40)
[2021-10-20] MEDS: FOLIC ACID 1MG TABLET PO SCH (09:40)
[2021-10-20] MEDS: PHYTONADIONE 10MG/ML AMP SUBCUT SCH (09:53)
[2021-10-20 12:56] LABS: PLATELET ESTIMATE DECREASED
[2021-10-20 18:56] VITALS: BP 121/65
[2021-10-20] MEDS: CEFEPIME 2,000 MG in DEXT 5% WATER 100 ML IV SCH (19:15)
[2021-10-20 20:00] VITALS: BP 128/76
[2021-10-20] MEDS: NITROFURANTOIN 100MG M/M CAPSULE PO SCH (20:56)
[2021-10-21] VITALS: BP 116/88
[2021-10-21] MEDS: METOCLOPRAMIDE HCL 10MG/2ML VIAL IV SCH ×4 (01:33→18:00)
[2021-10-21] MEDS: CEFEPIME 2,000 MG in DEXT 5% WATER 100 ML IV SCH ×3 (01:34→17:49)
[2021-10-21] MEDS: SODIUM CHLORIDE 0.9% 1,000 ML IV SCH ×2 (01:38→15:46)
[2021-10-21 04:00] VITALS: BP 130/69
[2021-10-21] MEDS: LACTULOSE 20G/30ML UDC PO SCH ×3 (05:35→22:00)
[2021-10-21] MEDS: BLOOD SUGAR DIAGNOSTIC STRIP TEST SCH ×4 (05:53→21:00)
[2021-10-21] MEDS: INSULIN LISPRO 100 UNITS/ML SUBCUT SCH ×4 (05:53→21:00)
[2021-10-21 07:53] LABS: CHLORIDE 123 mEq/L (98-107)
[2021-10-21 07:54] LABS: HEMATOCRIT. 33.9 % (42.0-52.0); HEMOGLOBIN. 11.2 g/dL (14.0-18.0); MEAN CORPUSCULAR HEMOGLOBIN 31.5 pg (28.0-32.0); MEAN CORPUSCULAR VOLUME 95.7 fL (80.0-94.0); MEAN PLATELET VOLUME 8.8 fl (7.4-10.4); PLATELET 81 x1000/uL (130-400); RED BLOOD CELL COUNT 3.55 mill/uL (4.7-6.1)
[2021-10-21] MEDS: PANTOPRAZOLE SODIUM 40 MG/VIAL IV SCH (09:00)
[2021-10-21] MEDS: NITROFURANTOIN 100MG M/M CAPSULE PO SCH ×2 (10:02→21:00)
[2021-10-21] MEDS: FOLIC ACID 1MG TABLET PO SCH (10:03)
[2021-10-21] MEDS: THIAMINE HCL 100MG TABLET PO SCH (10:03)
[2021-10-21] MEDS: MULTIVITAMINS,THER W-MINERALS TABLET PO SCH (10:03)
[2021-10-21 12:00] VITALS: BP 150/71
[2021-10-21 12:31] LABS: PLATELET ESTIMATE DECREASED
[2021-10-21 16:00] VITALS: BP 144/71
[2021-10-21 20:00] VITALS: BP 114/67
[2021-10-21] MEDS: RIFAXIMIN 550 MG TABLET PO SCH (21:00)
[2021-10-22] VITALS: BP 120/79
[2021-10-22] MEDS: CEFEPIME 2,000 MG in DEXT 5% WATER 100 ML IV SCH ×4 (02:16→23:46)
[2021-10-22] MEDS: SODIUM CHLORIDE 0.9% 1,000 ML IV SCH (02:18)
[2021-10-22 04:00] VITALS: BP 130/80
[2021-10-22] MEDS: LACTULOSE 20G/30ML UDC PO SCH ×3 (06:00→21:49)
[2021-10-22] MEDS: METOCLOPRAMIDE HCL 10MG/2ML VIAL IV SCH ×5 (06:11→23:58)
[2021-10-22] MEDS: INSULIN LISPRO 100 UNITS/ML SUBCUT SCH ×4 (06:12→21:00)
[2021-10-22] MEDS: BLOOD SUGAR DIAGNOSTIC STRIP TEST SCH ×4 (06:12→21:50)
[2021-10-22 07:27] LABS: CHLORIDE 124 mEq/L (98-107)
[2021-10-22] MEDS: RIFAXIMIN 550 MG TABLET PO SCH ×3 (09:00→21:50)
[2021-10-22] MEDS: THIAMINE HCL 100MG TABLET PO SCH (11:25)
[2021-10-22] MEDS: NITROFURANTOIN 100MG M/M CAPSULE PO SCH ×2 (11:25→21:50)
[2021-10-22] MEDS: FOLIC ACID 1MG TABLET PO SCH (11:25)
[2021-10-22] MEDS: MULTIVITAMINS,THER W-MINERALS TABLET PO SCH (11:25)
[2021-10-22] MEDS: PANTOPRAZOLE SODIUM 40 MG/VIAL IV SCH (11:26)
[2021-10-22] MEDS: SODIUM CHLORIDE 0.45% 1,000 ML IV SCH ×2 (11:34→23:47)
[2021-10-22 12:00] VITALS: BP 118/76
[2021-10-22 16:00] VITALS: BP 129/64
[2021-10-22 20:00] VITALS: BP 117/60
[2021-10-23] VITALS (51 sets, daily range): BP systolic 84–169; BP diastolic 46–79
[2021-10-23] MEDS: DEXTROSE 50% WATER 50ML SYRINGE IV PRN (05:41)
[2021-10-23] MEDS: METOCLOPRAMIDE HCL 10MG/2ML VIAL IV SCH ×3 (05:42→20:23)
[2021-10-23] MEDS: LACTULOSE 20G/30ML UDC PO SCH ×3 (05:43→21:48)
[2021-10-23] MEDS: BLOOD SUGAR DIAGNOSTIC STRIP TEST SCH ×4 (05:44→21:49)
[2021-10-23 06:20] LABS: PROTHROMBIN TIME 29.5 sec (9.6-11.0)
[2021-10-23 07:10] LABS: HEMATOCRIT. 39.1 % (42.0-52.0); MEAN CORPUSCULAR HEMOGLOBIN 30.9 pg (28.0-32.0); MEAN CORPUSCULAR VOLUME 100.6 fL (80.0-94.0); MEAN PLATELET VOLUME 9.1 fl (7.4-10.4); PLATELET 110 x1000/uL (130-400); RED BLOOD CELL COUNT 3.88 mill/uL (4.7-6.1); RED CELL DISTRIBUTION WIDTH 22.9 % (11.6-14.6)
[2021-10-23] MEDS: INSULIN LISPRO 100 UNITS/ML SUBCUT SCH ×4 (07:10→21:00)
[2021-10-23 07:16] LABS: CHLORIDE 123 mEq/L (98-107)
[2021-10-23] MEDS ORDERED: VECURONIUM BROMIDE 10 MG/VIAL IV ONE (07:47)
[2021-10-23] MEDS ORDERED: ETOMIDATE 2MG/ML 10ML VIAL IV ONE (07:47)
[2021-10-23] MEDS ORDERED: SODIUM CHLORIDE 0.9% 10ML VIAL ONE (07:47)
[2021-10-23] MEDS ORDERED: SODIUM BICARBONATE 8.4% 1 MEQ/ML 50ML SYR IV NR ×3 (10:15→18:30)
[2021-10-23 11:12] LABS: CREATINE KINASE 63 IU/L (39-308)
[2021-10-23] MEDS: SODIUM BICARBONATE 100 MEQ in DEXTROSE 5% WATER 1,000 ML IV SCH ×2 (11:13→21:48)
[2021-10-23 11:35] LABS: BG BASE EXCESS -20.5 mmol/L (-2.0-2.0); BG CARBOXYHEMOGLOBIN 0.3 % (0.5-1.5); BG DEOXYHEMOGLOBIN 3.6 % (0.0-5.0); BG FRACTION INSPIRED OXYGEN 28; BG HCO3 ACT 7.5 mmol/L (22.0-26.0); BG OXYGEN SATURATION 96.4 % (92.0-98.5); BG OXYHEMOGLOBIN 96.1 % (94.0-97.0); BG PCO2 24.8 mmHg (35.0-45.0); BG PH 7.101 (7.350-7.450); BG PO2 99.6 mmHg (75.0-100.0); BG SAMPLE SITE RIGHT RADIAL; BG TOTAL HEMOGLOBIN 11.4 g/dL (12.0-18.0); BG VENT MODE NASAL CANNULA
[2021-10-23] MEDS: FOLIC ACID 1MG TABLET PO SCH (11:42)
[2021-10-23] MEDS: THIAMINE HCL 100MG TABLET PO SCH (11:42)
[2021-10-23] MEDS: MULTIVITAMINS,THER W-MINERALS TABLET PO SCH (11:42)
[2021-10-23] MEDS: RIFAXIMIN 550 MG TABLET PO SCH ×2 (11:42→21:49)
[2021-10-23] MEDS: PANTOPRAZOLE SODIUM 40 MG/VIAL IV SCH (11:42)
[2021-10-23 12:07] LABS: AMYLASE 343 IU/L (25-115)
[2021-10-23 13:27] LABS: BG BASE EXCESS -21.8 mmol/L (-2.0-2.0); BG CARBOXYHEMOGLOBIN 0.4 % (0.5-1.5); BG FRACTION INSPIRED OXYGEN 21; BG HCO3 ACT 6.3 mmol/L (22.0-26.0); BG METHEMOGLOBIN 0.1 % (0.0-1.5); BG OXYHEMOGLOBIN 95.5 % (94.0-97.0); BG PCO2 20.9 mmHg (35.0-45.0); BG PH 7.094 (7.350-7.450); BG PO2 98.8 mmHg (75.0-100.0); BG SAMPLE SITE LEFT RADIAL; BG TOTAL HEMOGLOBIN 11.8 g/dL (12.0-18.0); BG VENT MODE ROOM AIR
[2021-10-23 13:29] LABS: PLATELET ESTIMATE DECREASED
[2021-10-23] MEDS ORDERED: LIDOCAINE HCL 1% 10 MG/ML 10ML VIAL ONE (13:44)
[2021-10-23] MEDS: PHYTONADIONE 10MG/ML AMP SUBCUT SCH (14:01)
[2021-10-23] MEDS ORDERED: NOREPINEPHRINE 8MG/250ML PMX 250 ML IV PRN (15:15)
[2021-10-23] MEDS: NOREPINEPHRINE 8 MG in DEXTROSE 5% WATER 250 ML IV PRN (15:45)
[2021-10-23] MEDS: CEFEPIME 2,000 MG in DEXT 5% WATER 100 ML IV SCH ×2 (15:45→20:23)
[2021-10-23] MEDS ORDERED: FENTANYL CITRATE/PF 2,500 MCG in SODIUM CHLORIDE 0.9% 200 ML IV PRN (16:00)
[2021-10-23] MEDS ORDERED: PHENYLEPHRINE 100 MG in DEXT 5% WATER 240 ML IV PRN (16:00)
[2021-10-23] MEDS ORDERED: PROPOFOL 10MG/ML 100ML 100 ML IV PRN (16:30)
[2021-10-23 17:49] LABS: BG BASE EXCESS -21.2 mmol/L (-2.0-2.0); BG CARBOXYHEMOGLOBIN 0.5 % (0.5-1.5); BG DEOXYHEMOGLOBIN 3.3 % (0.0-5.0); BG FRACTION INSPIRED OXYGEN 40; BG HCO3 ACT 7.5 mmol/L (22.0-26.0); BG OXYGEN SATURATION 96.7 % (92.0-98.5); BG OXYHEMOGLOBIN 96.2 % (94.0-97.0); BG PCO2 26.3 mmHg (35.0-45.0); BG PH 7.071 (7.350-7.450); BG PO2 106.5 mmHg (75.0-100.0); BG SAMPLE SITE LEFT RADIAL; BG TOTAL HEMOGLOBIN 12.3 g/dL (12.0-18.0); BG VENT MODE VENT - AC
[2021-10-24] VITALS (112 sets, daily range): BP systolic 54–137; BP diastolic 19–113
[2021-10-24] MEDS: CEFEPIME 2,000 MG in DEXT 5% WATER 100 ML IV SCH ×2 (01:10→09:57)
[2021-10-24] MEDS: METOCLOPRAMIDE HCL 10MG/2ML VIAL IV SCH ×5 (01:10→23:39)
[2021-10-24 01:37] LABS: BG BASE EXCESS -19.6 mmol/L (-2.0-2.0); BG CARBOXYHEMOGLOBIN 0.1 % (0.5-1.5); BG DEOXYHEMOGLOBIN 3.8 % (0.0-5.0); BG FRACTION INSPIRED OXYGEN 40; BG HCO3 ACT 8.3 mmol/L (22.0-26.0); BG METHEMOGLOBIN 0.1 % (0.0-1.5); BG OXYGEN SATURATION 96.2 % (92.0-98.5); BG PCO2 26.1 mmHg (35.0-45.0); BG PH 7.118 (7.350-7.450); BG PO2 100.9 mmHg (75.0-100.0); BG SAMPLE SITE LEFT RADIAL; BG TOTAL HEMOGLOBIN 12.3 g/dL (12.0-18.0); BG VENT MODE VENT - AC
[2021-10-24] MEDS: NOREPINEPHRINE 8 MG in DEXTROSE 5% WATER 250 ML IV PRN ×3 (02:36→15:10)
[2021-10-24] MEDS: LACTULOSE 20G/30ML UDC PO SCH ×3 (05:34→21:37)
[2021-10-24 05:37] LABS: HEMATOCRIT. 37.5 % (42.0-52.0); HEMOGLOBIN. 11.5 g/dL (14.0-18.0); MEAN CORPUSCULAR HEMOGLOBIN 30.9 pg (28.0-32.0); MEAN CORPUSCULAR VOLUME 100.8 fL (80.0-94.0); RED BLOOD CELL COUNT 3.72 mill/uL (4.7-6.1); RED CELL DISTRIBUTION WIDTH 22.6 % (11.6-14.6)
[2021-10-24] MEDS: BLOOD SUGAR DIAGNOSTIC STRIP TEST SCH ×4 (05:43→21:39)
[2021-10-24 06:16] LABS: PHOSPHORUS 8.1 mg/dL (2.5-4.9)
[2021-10-24] MEDS: SODIUM BICARBONATE 100 MEQ in DEXTROSE 5% WATER 1,000 ML IV SCH ×3 (06:48→21:37)
[2021-10-24] MEDS: INSULIN LISPRO 100 UNITS/ML SUBCUT SCH ×4 (06:52→21:00)
[2021-10-24 07:20] LABS: PROTHROMBIN TIME 58.7 sec (9.6-11.0)
[2021-10-24 07:22] LABS: INR 6.3
[2021-10-24] MEDS ORDERED: SODIUM BICARBONATE 8.4% 1 MEQ/ML 50ML SYR IV SCH ×2 (07:50→08:15)
[2021-10-24 07:51] LABS: BG CARBOXYHEMOGLOBIN 0.7 % (0.5-1.5); BG DEOXYHEMOGLOBIN 22.2 % (0.0-5.0); BG HCO3 ACT 8.1 mmol/L (22.0-26.0); BG METHEMOGLOBIN 0.1 % (0.0-1.5); BG OXYGEN SATURATION 77.6 % (92.0-98.5); BG PCO2 29.3 mmHg (35.0-45.0); BG PO2 54.7 mmHg (75.0-100.0); BG SAMPLE SITE RIGHT RADIAL; BG TOTAL HEMOGLOBIN 13.7 g/dL (12.0-18.0); BG VENT MODE VENT - AC
[2021-10-24] MEDS: RIFAXIMIN 550 MG TABLET PO SCH ×2 (09:29→21:36)
[2021-10-24] MEDS: FOLIC ACID 1MG TABLET PO SCH (09:29)
[2021-10-24] MEDS: THIAMINE HCL 100MG TABLET PO SCH (09:29)
[2021-10-24] MEDS: MULTIVITAMINS,THER W-MINERALS TABLET PO SCH (09:29)
[2021-10-24] MEDS: PANTOPRAZOLE SODIUM 40 MG/VIAL IV SCH (09:29)
[2021-10-24] MEDS: PHYTONADIONE 10MG/ML AMP SUBCUT SCH (09:30)
[2021-10-24 10:01] LABS: BG CARBOXYHEMOGLOBIN 0.3 % (0.5-1.5); BG DEOXYHEMOGLOBIN 0.6 % (0.0-5.0); BG FRACTION INSPIRED OXYGEN 80; BG HCO3 ACT 10.6 mmol/L (22.0-26.0); BG METHEMOGLOBIN 0.1 % (0.0-1.5); BG OXYGEN SATURATION 99.4 % (92.0-98.5); BG PCO2 27.6 mmHg (35.0-45.0); BG PH 7.201 (7.350-7.450); BG PO2 193.9 mmHg (75.0-100.0); BG SAMPLE SITE RIGHT RADIAL; BG TOTAL HEMOGLOBIN 11.3 g/dL (12.0-18.0); BG VENT MODE VENT - AC
[2021-10-24] MEDS ORDERED: FLUCONAZOLE 200MG/100ML PREMIX IV ONE (10:15)
[2021-10-24] MEDS ORDERED: METRONIDAZOLE 500 MG PREMIX 100 ML IV SCH (11:00)
[2021-10-24] MEDS ORDERED: FLUCONAZOLE 200 MG/100ML BAG 100 ML IV SCH (11:00)
[2021-10-24] MEDS ORDERED: VANCOMYCIN 1 G PREMIX 200 ML IV SCH (11:00)
[2021-10-24] MEDS: MEROPENEM 1,000 MG in SODIUM CHLORIDE 0.9% 100 ML IV SCH ×2 (13:16→23:39)
[2021-10-24 13:54] LABS: PLATELET ESTIMATE SLIGHTLY DECREASED
[2021-10-24 13:55] LABS: PLATELET 82 x1000/uL (130-400)
[2021-10-24] MEDS: NOREPINEPHRINE 32 MG in DEXT 5% WATER 218 ML IV PRN (18:49)
[2021-10-25] VITALS (77 sets, daily range): BP systolic 63–147; BP diastolic 14–77
[2021-10-25] MEDS: NOREPINEPHRINE 32 MG in DEXT 5% WATER 218 ML IV PRN ×3 (02:01→15:51)
[2021-10-25] MEDS: METOCLOPRAMIDE HCL 10MG/2ML VIAL IV SCH ×2 (05:09→12:31)
[2021-10-25] MEDS: LACTULOSE 20G/30ML UDC PO SCH ×2 (05:09→15:50)
[2021-10-25] MEDS: BLOOD SUGAR DIAGNOSTIC STRIP TEST SCH ×2 (05:49→12:02)
[2021-10-25] MEDS: DEXTROSE 50% WATER 50ML SYRINGE IV PRN ×2 (05:52→09:11)
[2021-10-25 06:11] LABS: HEMATOCRIT. 31.7 % (42.0-52.0); HEMOGLOBIN. 9.3 g/dL (14.0-18.0); MEAN CORPUSCULAR HEMOGLOBIN 30.9 pg (28.0-32.0); MEAN CORPUSCULAR VOLUME 105.3 fL (80.0-94.0); RED BLOOD CELL COUNT 3.01 mill/uL (4.7-6.1); RED CELL DISTRIBUTION WIDTH 23.7 % (11.6-14.6)
[2021-10-25 06:27] LABS: INR 3.5; PROTHROMBIN TIME 34.5 sec (9.6-11.0)
[2021-10-25 06:41] LABS: PHOSPHORUS 9.2 mg/dL (2.5-4.9)
[2021-10-25] MEDS: INSULIN LISPRO 100 UNITS/ML SUBCUT SCH ×2 (06:42→12:00)
[2021-10-25] MEDS: SODIUM BICARBONATE 100 MEQ in DEXTROSE 5% WATER 1,000 ML IV SCH ×2 (06:48→10:27)
[2021-10-25] MEDS ORDERED: DEXTROSE 50% WATER 50ML SYRINGE IV SCH (07:35)
[2021-10-25] MEDS ORDERED: SODIUM BICARBONATE 8.4% 1 MEQ/ML 50ML SYR IV SCH ×2 (07:35→09:30)
[2021-10-25] MEDS ORDERED: INSULIN REGULAR (HUMULIN R) 300UNITS/3ML VIAL IV SCH (07:35)
[2021-10-25] MEDS ORDERED: SODIUM POLYSTYRENE SULFONATE 15 G/60 ML BOT PO SCH (07:45)
[2021-10-25 07:56] LABS: NUCLEATED RED BLOOD CELLS 3 /100 WBC
[2021-10-25 07:57] LABS: PLATELET ESTIMATE DECREASED
[2021-10-25 08:08] LABS: MEAN PLATELET VOLUME 10.1 fl (7.4-10.4)
[2021-10-25 08:09] LABS: PLATELET 59 x1000/uL (130-400)
[2021-10-25] MEDS: RIFAXIMIN 550 MG TABLET PO SCH (08:55)
[2021-10-25] MEDS: PANTOPRAZOLE SODIUM 40 MG/VIAL IV SCH (08:55)
[2021-10-25] MEDS: FOLIC ACID 1MG TABLET PO SCH (08:55)
[2021-10-25] MEDS: MULTIVITAMINS,THER W-MINERALS TABLET PO SCH (08:55)
[2021-10-25] MEDS: THIAMINE HCL 100MG TABLET PO SCH (08:56)
[2021-10-25] MEDS: PHYTONADIONE 10MG/ML AMP SUBCUT SCH (09:11)
[2021-10-25 09:14] LABS: BG BASE EXCESS -26.1 mmol/L (-2.0-2.0); BG CARBOXYHEMOGLOBIN 0.2 % (0.5-1.5); BG DEOXYHEMOGLOBIN 9.8 % (0.0-5.0); BG FRACTION INSPIRED OXYGEN 80; BG HCO3 ACT 5.5 mmol/L (22.0-26.0); BG METHEMOGLOBIN 0.2 % (0.0-1.5); BG OXYGEN SATURATION 90.2 % (92.0-98.5); BG OXYHEMOGLOBIN 89.8 % (94.0-97.0); BG PH 6.899 (7.350-7.450); BG PO2 81.9 mmHg (75.0-100.0); BG SAMPLE SITE RIGHT RADIAL; BG TOTAL HEMOGLOBIN 10.5 g/dL (12.0-18.0); BG VENT MODE VENT - AC
[2021-10-25] MEDS ORDERED: SODIUM BICARBONATE IV SCH (10:00)
[2021-10-25] MEDS ORDERED: WATER IV SCH (10:00)
[2021-10-25] MEDS ORDERED: SODIUM BICARBONATE 150 MEQ in DEXT 10% WATER 850 ML IV SCH (10:00)
[2021-10-25] MEDS ORDERED: DEXTROSE 10% IV SCH (10:00)
[2021-10-25] MEDS ORDERED: LANTHANUM CARBONATE 500MG CHEW TABLET PO SCH (12:00)
[2021-10-25] MEDS: MEROPENEM 1,000 MG in SODIUM CHLORIDE 0.9% 100 ML IV SCH (12:08)
[2021-10-25 13:39] LABS: BG BASE EXCESS -25.2 mmol/L (-2.0-2.0); BG CARBOXYHEMOGLOBIN 0.1 % (0.5-1.5); BG DEOXYHEMOGLOBIN 8.6 % (0.0-5.0); BG FRACTION INSPIRED OXYGEN 80; BG METHEMOGLOBIN 0.4 % (0.0-1.5); BG OXYGEN SATURATION 91.4 % (92.0-98.5); BG OXYHEMOGLOBIN 90.9 % (94.0-97.0); BG PCO2 31.8 mmHg (35.0-45.0); BG PH 6.897 (7.350-7.450); BG PO2 81.7 mmHg (75.0-100.0); BG SAMPLE SITE LEFT RADIAL; BG TOTAL RESPIRATORY RATE 40 b/min; BG VENT MODE VENT - AC
== END 2021-10-25 19:48 | DRG 871 ==
LOC: ER 17:37 → ENRESERV 21:33 → EDBD 22:19 → 7EST 22:19 → MICUSO 10-23 12:51
PROVIDERS: ADMIT Internal Medicine; ATTEND Internal Medicine
PROC: 0BH17EZ Insertion of Endotracheal Airway into Trachea, Via Natural or Artificial Opening (ICD-10-PCS; principal; 2021-10-23)
PROC: 5A1945Z Respiratory Ventilation, 24-96 Consecutive Hours (ICD-10-PCS; 2021-10-23)
PROC: 05HY33Z Insertion of Infusion Device into Upper Vein, Percutaneous Approach (ICD-10-PCS; 2021-10-23)
PROC: B54MZZA Ultrasonography of Right Upper Extremity Veins, Guidance (ICD-10-PCS; 2021-10-23)
PROC: 30233K1 Transfusion of Nonautologous Frozen Plasma into Peripheral Vein, Percutaneous Approach (ICD-10-PCS; 2021-10-24)
DX: A41.81 Sepsis due to Enterococcus (principal); E43 Unspecified severe protein-calorie malnutrition; G93.41 Metabolic encephalopathy; R65.21 Severe sepsis with septic shock; K83.1 Obstruction of bile duct; J96.01 Acute respiratory failure with hypoxia; J18.9 Pneumonia, unspecified organism; F10.239 Alcohol dependence with withdrawal, unspecified; E87.0 Hyperosmolality and hypernatremia; N17.9 Acute kidney failure, unspecified; D68.9 Coagulation defect, unspecified; N39.0 Urinary tract infection, site not specified; M62.82 Rhabdomyolysis; E72.20 Disorder of urea cycle metabolism, unspecified; D68.59 Other primary thrombophilia; E87.2 Acidosis; Z66 Do not resuscitate; G40.909 Epilepsy, unspecified, not intractable, without status epilepticus; D64.9 Anemia, unspecified; E78.5 Hyperlipidemia, unspecified; K72.90 Hepatic failure, unspecified without coma; E83.51 Hypocalcemia; E87.6 Hypokalemia; I10 Essential (primary) hypertension; Y90.0 Blood alcohol level of less than 20 mg/100 ml; E83.42 Hypomagnesemia; F41.9 Anxiety disorder, unspecified; Z20.822 Contact with and (suspected) exposure to COVID-19; K70.30 Alcoholic cirrhosis of liver without ascites; K70.10 Alcoholic hepatitis without ascites; D69.59 Other secondary thrombocytopenia; E87.5 Hyperkalemia; E11.649 Type 2 diabetes mellitus with hypoglycemia without coma; K31.89 Other diseases of stomach and duodenum; N40.0 Benign prostatic hyperplasia without lower urinary tract symptoms; Z87.891 Personal history of nicotine dependence; Z68.36 Body mass index [BMI] 36.0-36.9, adult
CPT/HCPCS: 31500; 36415; 36600; 71045; 73560; 74018; 74181; 76700; 76705; 76937; 80048; 80053; 80061; 80076; 80305; 80307; 80320; 80329; 81003; 82105; 82140; 82150; 82248; 82375; 82550; 82553; 82805; 82962; 83036; 83605; 83735; 83880; 84100; 84145; 84443; 84478; 84484; 85025; 86705; 86709; 86803; 86850; 86900; 86927; 87077; 87186; 87340; 87426; 92610; 93005; 93970; 94002; 94003; 97116; 97162; 97166; 97530; 99285; A6261; C1725; C1893; C9113; J0290; J0692; J1450; J1815; J1953; J2060; J2185; J2370; J2765; J3370; J3411; J3430; J3475; J3480; J3490; J7030; J7040; J7050; J7060; J7070; J7120; P9017; G0480